=== PATIENT | male | born 1990 | race Two or more races ===

== ENCOUNTER 2018-02-04 10:50 | Emergency (ER) | payer SELFPAY ==
[~2018-02-04] VITALS: Ht 180.3 cm; Wt 121.6 kg
[2018-02-04 11:05] VITALS: BP 151/90
[2018-02-04] MEDS ORDERED: DIPHTH,PERTUSS(ACELL),TET TOX 0.5 ML DISP.SYRIN. VAX IM ONE (11:30)
--- NOTE | 2018-02-04 11:44 | RAD ---
Right foot, 3 views, 02/04/2018: HISTORY: Stepped on nail, foot pain and swelling No fracture or dislocation is identified. There is mild spurring at the mid foot level. Subcutaneous edema is evident. No radiopaque foreign body is evident in the soft tissues. IMPRESSION: No acute bony abnormality is detected. Electronically signed by: Yuri Nevarez MD (02/04/2018 11:40 AM) [facility]
[2018-02-04] MEDS ORDERED: CIPR500T94 PO (12:28)
--- NOTE | 2018-02-04 12:29 | PHYS DOC ---
Past Medical History Past Medical History: No Pertinent History Alcohol Use: Occasionally Drug Use: None Adult General Chief Complaint Chief Complaint: FOOT INJURY PAIN HPI HPI Patient is a 27 year old male who presents to the emergency Department today with complaints of right foot pain after stepping on a nail yesterday. Patient states the nail went through his shoe and sock and into the plantar surface of his right foot posterior to the fourth toe. He denies any numbness or tingling. States that there is been no drainage from the area however today it is red. Patient is unsure when his last tetanus shot was. He denies any medical or surgical history, denies any allergies to any medications. Currently he rates his pain as a 4 out of 10 on pain scale. Review of Systems Review of Systems Constitutional: Denies fever or chills [] Musculoskeletal: Denies back pain or joint pain, reports R foot pain ] Integument: Denies rash, reports puncture wound to plantar surface of R foot with redness and mild swelling Neurologic: Denies focal weakness or sensory changes [] Current Medications Current Medications Current Medications Medications (Trade) Dose Ordered Sig/Renata Start Time Stop Time Status Last Admin Dose Admin Diphtheria/ Tetanus/Acell Pertussis (Boostrix) 0.5 ml ONCE ONCE 02/04/18 11:30 02/04/18 11:31 DC 02/04/18 11:45 0.5 ML Neomycin/ Polymyxin/ Bacitracin (Triple Antibiotic Ointment) 1 pkt STK-MED ONCE 02/04/18 12:55 02/04/18 12:56 DC Allergies Allergies Allergies Coded Allergies Type Severity Reaction Last Updated Verified No Known Drug Allergies 02/04/18 No Physical Exam Physical Exam Constitutional: Well developed, well nourished, no acute distress, non-toxic appearance. [] HENT: Normocephalic, atraumatic, bilateral external ears normal, nose normal. [] Eyes: PERRLA, conjunctiva normal, no discharge. [] Skin: Warm, dry, erythema noted surrounding puncture wound on plantar surface of R foot posterior to 4th toe. Extremities: No cyanosis, ROM intact, tenderness to plantar surface of R foot at puncture site, mild swelling at the puncture site. Neurologic: Alert and oriented X 3, normal motor function, normal sensory function, no focal deficits noted. [] Psychologic: Affect normal, judgement normal, mood normal. [] Current Patient Data Vital Signs Vital Signs Date Time Temp Pulse Resp B/P (MAP) Pulse Ox O2 Delivery O2 Flow Rate FiO2 02/04/18 11:05 98.0 66 16 151/90 (110) 99 Room Air 98.0 EKG EKG [] Radiology/Procedures Radiology/Procedures IMAGING REPORT Signed PATIENT: CLARITZA VILLAGOMEZ ACCOUNT: [id number] : 1990 LOCATION: ER AGE: 27 SEX: M EXAM STATUS: REG ER ORD. PHYSICIAN: ESTHELA GÓMEZ APRN REASON: stepped on a nail yesterday swollen and painful to step on. PROCEDURE: FOOT RIGHT 3V Right foot, 3 views, 02/04/2018: HISTORY: Stepped on nail, foot pain and swelling No fracture or dislocation is identified. There is mild spurring at the mid foot level. Subcutaneous edema is evident. No radiopaque foreign body is evident in the soft tissues. IMPRESSION: No acute bony abnormality is detected. Electronically signed by: Yuri Nevarez MD (02/04/2018 11:40 AM) [facility] DICTATED and SIGNED BY: YURI NEVAREZ MD DATE: 02/04/18 1139 [] Course & Med Decision Making Course & Med Decision Making Pertinent Labs and Imaging studies reviewed. (See chart for details) Patient is a 27-year-old male who presented to the emergency room with complaints of right foot pain and a puncture wound after stepping on a nail yesterday. X-ray of the foot was negative for any acute findings, putting osteomyelitis or fracture. His foot was soaked in a Betadine soak in the emergency department antibiotic ointment and a bandage was applied by the nurse. D-tap was given in the department. Prescription for Cipro was written. Patient verbalized an understanding of home care, medications, follow-up, and return to ED instructions and was in agreement with the plan of care. [] Dragon Disclaimer Dragon Disclaimer This electronic medical record was generated, in whole or in part, using a voice recognition dictation system. Departure Departure Impression: Primary Impression: Puncture wound of right foot excluding toes without complication Disposition: 01 HOME, SELF-CARE Condition: STABLE Referrals: NO PCP (PCP) Patient Instructions: Puncture Wound, [id number] Additional Instructions: Fill the prescription and use as directed. Keep open area covered with bandage, apply antibiotic ointment 2-3 times a day and new bandage. Follow-up with your primary care doctor in the next 1-2 days for recheck of the wound. Return to the emergency room if your symptoms worsen. Scripts Ciprofloxacin Hcl (CIPRO) 500 Mg Tablet 1 TAB PO BID for 10 Days, #20 TAB 0 Refills Prov: ESTHELA GÓMEZ VASCULAR NEUROLOGIST 02/04/18 Problem Qualifiers Primary Impression: Puncture wound of right foot excluding toes without complication Encounter type: initial encounter Qualified Codes: S91.331A - Puncture wound without foreign body, right foot, initial encounter ESTHELA GÓMEZ VASCULAR NEUROLOGIST Feb 04, 2018 12:29
[2018-02-04] MEDS ORDERED: NEOMY/BACITR/POLYMYXIN OINT PACKET. TP ONE ×2 (12:55→13:00)
== END 2018-02-04 13:13 | disposition home or self-care (01) ==
LOC: ER 10:50
DX: S91.331A Puncture wound without foreign body, right foot, initial encounter (principal); X58.XXXA Exposure to other specified factors, initial encounter; Y93.89 Activity, other specified; Y92.89 Other specified places as the place of occurrence of the external cause; Y99.8 Other external cause status
CPT/HCPCS: 73630; 90471; 90715; 99284